=== PATIENT | female | born 1970 | race Hispanic/Latino ===

== ENCOUNTER 2025-03-16 22:06 | Emergency (ER) | payer SELFPAY ==
[~2025-03-16] VITALS: Ht 154.9 cm; Wt 72.6 kg
[2025-03-16 22:08] VITALS: PULSE 83; RESP 22; TEMP 98.3
[2025-03-16 23:46] LABS: BILIRUBIN,URINE NEGATIVE (NEGATIVE); CLARITY,URINE CLEAR (CLEAR); COLOR,URINE YELLOW (YELLOW); GLUCOSE, URINE NEGATIVE (NEGATIVE); KETONES,URINE NEGATIVE (NEGATIVE); LEUKOCYTE ESTERASE ,URINE 1+ (NEGATIVE); NITRITE,URINE NEGATIVE (NEGATIVE); PH,URINE 6 (5 - 7); PROTEIN,URINE DIPSTICK NEGATIVE (NEGATIVE); URINE UROBILINOGEN 0.2 mg/dL (0.2 - 1)
[2025-03-16 23:56] LABS: BACTERIA,URINE MANY /HPF; EPITHELIAL CELLS,URINE FEW /LPF; TRANSITIONAL EPI CELLS,URINE FEW; WBC,URINE (MAN) 21-50 /HPF (0-5)
[2025-03-16 23:57] LABS: MUCUS,URINE MANY; RENAL EPITHELIAL CELLS,URINE FEW
[2025-03-17 00:31] VITALS: BP 124/86; PULSE 80; RESP 17; TEMP 97.9; O2SAT 100
== END 2025-03-17 00:55 | disposition home or self-care (01) ==
LOC: ER 22:47
DX: M25.551 Pain in right hip (principal); R10.31 Right lower quadrant pain; K21.9 Gastro-esophageal reflux disease without esophagitis
CPT/HCPCS: 81001; 99283